=== PATIENT | male | born 1990 | race Caucasian/White ===

== ENCOUNTER 2018-02-19 10:43 | Observation (INO) | payer OTHER ==
[~2018-02-19] VITALS: Ht 190.5 cm; Wt 77.9 kg
[~2018-02-19 10:43] MED LIST: MOBIC15 MG PO
[2018-02-19 11:19] LABS: HEMATOCRIT 41.8 % (38.0-50.0); HEMOGLOBIN 14.2 G/DL (12.5-16.6); MCH 29.8 PG (29.0-34.0); MCV 87.6 FL (86-99); PLATELET COUNT 267 K/uL (156-360); RBC DIS.WIDTH-CV 15.8 % (11.8-14.6); RBC DIS.WIDTH-SD 50.5 % (39-53); RED BLOOD COUNT 4.77 M/uL (4.00-5.50); WHITE BLOOD COUNT 7.4 K/uL (4.1-10.2)
[2018-02-19 11:37] LABS: APPEARANCE CLEAR ((CLEAR)); BILIRUBIN MODERATE; BLOOD NEGATIVE; COLOR AMBER ((YELLOW)); GLUCOSE (STRIP) NEGATIVE; KETONES NEGATIVE; LEUKOCYTES NEGATIVE; NITRITE NEGATIVE; PROTEIN (STRIP) 30; SPECIFIC GRAVITY 1.027 (1.000-1.030); UCUL ADDED? NO
[2018-02-19 11:38] LABS: ICTOTEST ND
[2018-02-19 12:18] LABS: ALBUMIN 3.8 G/DL (3.2-4.8); ALKALINE PHOSPHATASE 300 IU/L (3-129); AST (GOT) 291 IU/L (2-34); CHLORIDE 104 MEQ/L (99-109); CREATININE 0.9 MG/DL (0.6-1.3); GFR ESTIMATE (CALCULATED) > 59 mL/min/ (58.99-99999); GLUCOSE 113 mg/dL (70-99); LIPASE 24 U/L (1.0-51.0); POTASSIUM 3.7 MEQ/L (3.7-5.4); SODIUM 141 MEQ/L (136-147); TOTAL BILIRUBIN 5.9 MG/DL (0.0-1.0); TOTAL PROTEIN 7.6 G/DL (6.4-8.3); UREA NITROGEN (BUN) 6 mg/dL (9-23)
[2018-02-19 12:20] LABS: ALT (GPT) 1088 IU/L (3-49)
[2018-02-19 12:46] LABS: INTER. NORMALIZED RATIO 1.2
[2018-02-19 12:49] LABS: PTT 39.6 SEC (25-37)
[2018-02-19 13:52] LABS: SALICYLATE < 3 MG/DL (15-30)
[2018-02-19 13:53] LABS: ACETAMINOPHEN (TYLENOL) < 10 MCG/ML (10-30)
[2018-02-19] MEDS ORDERED: METHADONE10 MG/1 M1 PO (17:29)
[2018-02-19 18:42] LABS: DIRECT BILIRUBIN 3.3 mg/dL (0.0-0.3)
[2018-02-19 18:54] LABS: LACTATE DEHYDROGENASE 160 IU/L (20-246)
[2018-02-19 19:23] LABS: GAMMA-GT 216 IU/L (4-73)
[2018-02-19 20:14] VITALS: BP 100/55
[2018-02-20 05:59] LABS: HEMATOCRIT 37.8 % (38.0-50.0); HEMOGLOBIN 12.5 G/DL (12.5-16.6); MCH 29.4 PG (29.0-34.0); MCHC 33.1 G/DL (30.0-36.0); MCV 88.9 FL (86-99); PLATELET COUNT 201 K/uL (156-360); RBC DIS.WIDTH-CV 16.2 % (11.8-14.6); RBC DIS.WIDTH-SD 52.4 % (39-53); RED BLOOD COUNT 4.25 M/uL (4.00-5.50); WHITE BLOOD COUNT 5.5 K/uL (4.1-10.2)
[2018-02-20 06:19] LABS: ALBUMIN 3.3 G/DL (3.2-4.8); ALKALINE PHOSPHATASE 227 IU/L (3-129); AST (GOT) 210 IU/L (2-34); CHLORIDE 109 MEQ/L (99-109); CREATININE 0.7 MG/DL (0.6-1.3); GFR ESTIMATE (CALCULATED) > 59 mL/min/ (58.99-99999); GLUCOSE 90 mg/dL (70-99); POTASSIUM 4.2 MEQ/L (3.7-5.4); SODIUM 143 MEQ/L (136-147); UREA NITROGEN (BUN) 6 mg/dL (9-23)
[2018-02-20 06:26] LABS: TOTAL BILIRUBIN 4.2 MG/DL (0.0-1.0); TOTAL PROTEIN 6.3 G/DL (6.4-8.3)
[2018-02-20 06:29] LABS: ALT (GPT) 780 IU/L (3-49)
[2018-02-20 07:56] VITALS: BP 119/71
[2018-02-20 08:22] LABS: MONOSPOT (MONONUCLEOSIS SEROL) POSITIVE
[2018-02-20 10:47] LABS: HEPATITIS B SURFACE ANTIGEN Nonreactive; HEPATITIS C ANTIBODY Nonreactive
[2018-02-20 10:49] LABS: ANTI-HEPATITIS B CORE (IGM) Nonreactive
[2018-02-20 11:04] LABS: ANTI-HEPATITIS A VIRUS (IGM) REACTIVE
[2018-02-20 12:07] VITALS: BP 121/74
[2018-02-20 16:08] VITALS: BP 118/55
[2018-02-20 19:00] VITALS: BP 135/65
[2018-02-21 04:31] VITALS: BP 131/67
[2018-02-21 05:29] LABS: HEMATOCRIT 37.7 % (38.0-50.0); HEMOGLOBIN 12.3 G/DL (12.5-16.6); MCH 29.3 PG (29.0-34.0); MCHC 32.6 G/DL (30.0-36.0); MCV 89.8 FL (86-99); PLATELET COUNT 200 K/uL (156-360); RBC DIS.WIDTH-CV 16.5 % (11.8-14.6); RBC DIS.WIDTH-SD 53.5 % (39-53); WHITE BLOOD COUNT 6.5 K/uL (4.1-10.2)
[2018-02-21 05:59] LABS: ANISOCYTOSIS 2+; BASOPHIL (%) 0.5 % (0-1); EOSINOPHIL (%) 3.7 % (0-5); EOSINOPHIL COUNT 0.2 K/uL (0-0.3); IMMATURE GRANULOCYTE (%) 0.3 % (0.0-0.7); LYMPHOCYTE (%) 48.1 % (15-42); LYMPHOCYTE COUNT 3.1 K/uL (1.0-2.8); MACROCYTES 2+; MONOCYTE (%) 7.9 % (3-12); MONOCYTE COUNT 0.5 K/uL (0-0.8); NEUTROPHIL (%) 39.5 % (45-76); NEUTROPHIL COUNT 2.6 K/uL (1.8-6.4); PLAT.SUFFICIENCY ADEQUATE
[2018-02-21 06:15] LABS: ALBUMIN 3.1 G/DL (3.2-4.8); ALKALINE PHOSPHATASE 219 IU/L (3-129); AST (GOT) 160 IU/L (2-34); CHLORIDE 107 MEQ/L (99-109); CREATININE 0.8 MG/DL (0.6-1.3); GFR ESTIMATE (CALCULATED) > 59 mL/min/ (58.99-99999); GLUCOSE 97 mg/dL (70-99); POTASSIUM 4.2 MEQ/L (3.7-5.4); SODIUM 142 MEQ/L (136-147); UREA NITROGEN (BUN) 6 mg/dL (9-23)
[2018-02-21 06:27] LABS: ALT (GPT) 581 IU/L (3-49)
[2018-02-21 06:28] LABS: TOTAL BILIRUBIN 2.6 MG/DL (0.0-1.0)
[2018-02-21 07:33] VITALS: BP 113/57
[2018-02-21 12:30] VITALS: BP 121/68
[2018-02-21 19:59] LABS: HCV RNA (IU/mL) <15 IU/mL (())
[2018-02-22 12:14] LABS: HCV RNA (LOG IU/mL) <1.18 (())
[2018-02-22 18:56] LABS: Cytomegalovirus IgG Antibody+ <0.60 U/mL (<0.60); Cytomegalovirus IgM Antibody+ <30.00 AU/mL (<30.00)
[2018-02-22 21:04] LABS: ANTI-SMOOTH MUSCLE (Actin)+ <20 U (<20)
[2018-02-24 14:22] LABS: HBV DNA IU/mL <10 IU/mL (())
[2018-02-25 09:05] LABS: HBV DNA Copies/mL <1.00 (())
== END 2018-02-21 12:50 | disposition home or self-care (01) ==
LOC: EME 10:43 → EDOF 17:16 → 4SOUTH 17:16 → EDOF 17:16 → ENRESERV 17:29 → 4SOUTH 19:54
PROVIDERS: Emergency Medicine; Family Medicine; Hospitalist; Internal Medicine Gastroenterology; Internal Medicine Infectious Disease
DX: B15.9 Hepatitis A without hepatic coma (principal); B27.99 Infectious mononucleosis, unspecified with other complication; R59.1 Generalized enlarged lymph nodes; R79.89 Other specified abnormal findings of blood chemistry; K76.0 Fatty (change of) liver, not elsewhere classified; F31.9 Bipolar disorder, unspecified; G89.29 Other chronic pain; M54.9 Dorsalgia, unspecified; F11.10 Opioid abuse, uncomplicated; F12.10 Cannabis abuse, uncomplicated; F17.210 Nicotine dependence, cigarettes, uncomplicated; Z83.3 Family history of diabetes mellitus
CPT/HCPCS: 74177; 74183; 76705; 80053; 80074; 81003; 82164 90; 82248; 82977; 83516 90; 83615; 83690; 85025; 85027; 85610; 85730; 86038; 86235; 86256 90; 86308; 86644 90; 86645 90; 86664; 86665; 87517 90; 87522 90; 87798 90; G0378; G0480; J3480; J7030